=== PATIENT | female | born 1970 | race Caucasian/White ===

== ENCOUNTER 2020-03-25 10:10 | Emergency (ER) | payer OTHER ==
[~2020-03-25] VITALS: Ht 162.6 cm; Wt 114.0 kg
[2020-03-25] MEDS ORDERED: SODIUM CHLORIDE FLUSH 10ML SYR IVF ONE (10:30)
[2020-03-25] MEDS ORDERED: DIPHENHYDRAMINE 50 MG/ML, 1ML IVPush ONE (10:30)
[2020-03-25] MEDS ORDERED: METOCLOPRAMIDE 5 MG/ML, 2ML IVPush ONE (10:30)
[2020-03-25] MEDS ORDERED: METOCLOPRAMIDE 5 MG/ML, 2ML ONE (10:35)
[2020-03-25] MEDS ORDERED: DIPHENHYDRAMINE 50 MG/ML, 1ML ONE (10:35)
--- NOTE | 2020-03-25 10:50 | NUR ---
LABS DRAWN BY LAB. PT AMBULATES TO RESTROOM WITH STEADY GAIT AND ASSISTANCE FROM THIS RN AT THIS TIME.
[2020-03-25 10:53] LABS: BASOPHILS # (AUTO) 0.04 x10^3/uL (0-0.1); BASOPHILS % (AUTO) 1 % (0-1); EOSINOPHILS # (AUTO) 0.06 x10^3/uL (0-0.4); EOSINOPHILS % (AUTO) 1 % (1-7); LYMPHOCYTES % (AUTO) 26 % (22-44); MD NO; MEAN CORPUSCULAR HEMOGLOBIN 32.9 pg (27.0-34.8); MEAN CORPUSCULAR HGB CONC 33.3 g/dL (32.4-35.8); MEAN CORPUSCULAR VOLUME 98.9 fL (80-100); MEAN PLATELET VOLUME 8.9 fL (7.4-10.4); MONOCYTES # (AUTO) 0.79 x10^3/uL (0.2-0.8); MONOCYTES % (AUTO) 10 % (2-9); NEUTROPHILS # (AUTO) 5.13 x10^3/uL (1.8-6.8); NEUTROPHILS % (AUTO) 63 % (42-75); PLATELET COUNT 267 x10^3/uL (130-400); RED CELL DISTRIBUTION WIDTH 13.1 % (9.6-15.2)
--- NOTE | 2020-03-25 10:55 | NUR ---
pt medicated per dec. pt to ct via mary at this time.
[2020-03-25 11:00] LABS: ALANINE AMINOTRANSFERASE 25 U/L (12-78); ALBUMIN 3.6 g/dL (3.4-5.0); ANION GAP 6 mmol/L (5-15); CALCIUM 10.2 mg/dL (8.5-10.1); CHLORIDE 104 mmol/L (98-107); CREATININE 1.28 mg/dL (0.55-1.02)
[2020-03-25 11:02] LABS: ALKALINE PHOSPHATASE 73 U/L (45-117); TOTAL PROTEIN 7.6 g/dL (6.4-8.2)
--- NOTE | 2020-03-25 11:12 | NUR ---
DR FAROOQ AT BS WITH PT AT THIS TIME. URINE COLLECTED AND TUBED TO LAB.
[2020-03-25 11:15] LABS: BILIRUBIN,TOTAL 0.2 mg/dL (0.2-1.0)
[2020-03-25 11:48] LABS: AMPHETAMINE SCREEN, URINE Negative (Negative); BARBITURATE SCREEN, URINE Negative (Negative); BENZODIAZEPINE SCREEN, URINE Negative (Negative); CANNABINOID SCREEN, URINE Negative (Negative); COCAINE SCREEN, URINE Negative (Negative); METHADONE SCREEN, URINE Negative (Negative); OPIATE SCREEN, URINE Negative (Negative)
[2020-03-25 11:59] VITALS: BP 110/65
--- NOTE | 2020-03-25 11:59 | NUR ---
PT ASLEEP IN [facility] AT THIS TIME; NADN. CALL LIGHT IS WITHIN SLEEP. VSS AND UPDATED IN EMR.
--- NOTE | 2020-03-25 12:28 | NUR ---
PT TO MRI VIA [facility] AT THIS TIME.
--- NOTE | 2020-03-25 14:31 | NUR ---
PT D/C WITH D/C SUMMARY AND SCRIPTS. ALL QUESTIONS ANSWERED. PT AMBULATES TO REGISTRATION DESK WITH STEADY GAIT FOR D/C HOME WITH PARTNER. PT DENIES ANY OTHER NEEDS PERTAINING TO THIS VISIT. VSS AND UPDATED IN EMR. PIV D/C WITH TIP INTACT.
== END 2020-03-25 14:41 | disposition home or self-care (01) ==
LOC: ED 11:10
DX: G40.309 Generalized idiopathic epilepsy and epileptic syndromes, not intractable, without status epilepticus (principal); G44.52 New daily persistent headache (NDPH); R94.31 Abnormal electrocardiogram [ECG] [EKG]; I10 Essential (primary) hypertension; Z90.49 Acquired absence of other specified parts of digestive tract
CPT/HCPCS: 36415; 70450; 70544; 70551; 80053; 80307; 85025; 93005; 96374; 96375; 99285; J1200; J2765